=== PATIENT | male | born 1955 | race Caucasian/White ===

== ENCOUNTER 2016-05-22 14:08 | Day surgery (SDC) | payer OTHER ==
[2016-05-22] VITALS (8 sets, daily range): BP systolic 110–134; BP diastolic 60–81; PULSE 65–72; RESP 14–18; Ht 182.9 cm; Wt 146.6 kg
[~2016-05-22] VITALS: Ht 182.9 cm; Wt 146.6 kg
[~2016-05-22 14:08] MED LIST: PROPOFOL 200 MG INJ ONE
[2016-05-22] MEDS ORDERED: PROPOFOL 20 ML ONE (14:23)
[2016-05-22] MEDS ORDERED: MIDAZOLAM 1 MG/ML 2 ML INJ ONE ×2 (14:23→14:24)
--- NOTE | 2016-05-22 14:23 | HPN ---
Date/Time of Note Date/Time of Note DATE: 05/22/16 TIME: 14:19 Interval H&P Admission Note Pt. seen H&P reviewed: No system changes FLOR MANN May 22, 2016 14:23
[2016-05-22] MEDS ORDERED: ROPIVACAINE 0.5 % 30 ML VIAL ONE (14:26)
[2016-05-22] MEDS ORDERED: CEFAZOLIN 1 GM INJ ONE (14:26)
[2016-05-22 15:26] LABS: ADD SCAN DIFF NO
[2016-05-22] MEDS ORDERED: ASPI81TA3 PO (15:26)
[2016-05-22] MEDS ORDERED: ATOR40TA68 PO (15:26)
[2016-05-22] MEDS ORDERED: LISI10TA2 PO (15:26)
[2016-05-22] MEDS ORDERED: CLOP75TA28 PO (15:26)
[2016-05-22] MEDS ORDERED: ATEN50TA PO (15:26)
[2016-05-22 15:35] LABS: BASOPHILS % 0.5 % (0.0-2.0); EOSINOPHILS # 0.1 10^3/ul (0.0-0.5); HEMATOCRIT 43.3 % (42.0-52.0); HEMOGLOBIN 14.8 g/dl (14.0-18.0); LYMPHOCYTES # 2.2 10^3/ul (0.8-2.9); LYMPHOCYTES % 28.1 % (15.0-51.0); MEAN CORPUSCULAR HEMOGLOBIN 30.1 pg (29.0-33.0); MEAN CORPUSCULAR HGB CONC 34.2 g/dl (32.0-37.0); MEAN CORPUSCULAR VOLUME 88.2 fl (82.0-101.0); MONOCYTE # 0.6 10^3/ul (0.3-0.9); MONOCYTES % 8.1 % (0.0-11.0); NEUTROPHIL # 4.9 10^3/ul (1.6-7.5); NEUTROPHILS % 62.2 % (39.0-77.0); PLATELET COUNT 185 10^3/UL (140-415); RED BLOOD COUNT 4.91 10^6/ul (4.70-6.10); RED CELL DISTRIBUTION WIDTH 13.3 % (11.5-14.5); WHITE BLOOD COUNT 7.8 10^3/ul (4.8-10.8)
[2016-05-22 15:39] LABS: INR 0.91; PARTIAL THROMBOPLASTIN TIME 27.1 Sec (25.0-35.0); PROTIME 12.2 Sec (12.2-14.2)
[2016-05-22 15:46] LABS: CALCIUM 9.3 mg/dl (8.4-10.2); CREATININE 1.15 mg/dl (0.61-1.24)
--- NOTE | 2016-05-22 15:57 | RADRPT ---
PROCEDURE: CHEST 1VW CLINICAL INDICATION: Preoperative TECHNIQUE: Single frontal view of the chest was obtained COMPARISON: None. FINDINGS: The cardiac size is normal. Aortic vascular calcifications are demonstrated. There is no pulmonary vascular congestion. The lungs are clear. No consolidation, effusion, or pneumothorax. Mild degenerative changes of the visualized osseous structures are visualized. IMPRESSION: 1. No acute cardiopulmonary process. 2. Atherosclerosis. RPTAT:PP .Rhett Mayo MD, MD Date Time Electronically viewed and signed by .Rhett Mayo MD, MD on 05/22/2016 15:52 .V/
[2016-05-22] MEDS ORDERED: PHENYLephrine (100 MCG/ML) 5ML SYG ONE ×2 (15:59→16:05)
[2016-05-22] MEDS ORDERED: METOCLOPRAMIDE 10 MG INJ ONE (16:05)
[2016-05-22] MEDS ORDERED: ONDANSETRON 4 MG INJ ONE (16:05)
[2016-05-22] MEDS ORDERED: FAMOTIDINE 20 MG INJ ONE (16:05)
[2016-05-22] MEDS ORDERED: DEXAMETHASONE 4 MG/ML 1 ML INJ ONE (16:06)
[2016-05-22] MEDS ORDERED: METOPROLOL 5 MG INJ ONE (16:34)
[2016-05-22] MEDS ORDERED: MEPERIDINE 25 MG INJ IV PRN (17:00)
[2016-05-22] MEDS ORDERED: LABETALOL HCL 20MG INJ IV PRN (17:00)
[2016-05-22] MEDS ORDERED: ONDANSETRON 4 MG INJ IV PRN (17:00)
[2016-05-22] MEDS ORDERED: EPHEDrine SULFATE 50 MG/5 ML SYG IV PRN (17:00)
[2016-05-22] MEDS ORDERED: HYDROmorphONE (0.2 MG/ML) 10ML SYG IV PRN ×3 (17:00)
[2016-05-22] MEDS ORDERED: morphine (1 MG/ML) 10ML SYRINGE IV PRN ×3 (17:00)
[2016-05-22] MEDS ORDERED: METOCLOPRAMIDE 10 MG INJ IV PRN (17:00)
[2016-05-22] MEDS ORDERED: FENTAnyl 50 MCG/ML VIAL IV PRN ×3 (17:00)
[2016-05-22] MEDS ORDERED: DIPHENHYDRAMINE 50 MG INJ IV PRN (17:00)
--- NOTE | 2016-05-22 17:49 | RADRPT ---
PROCEDURE: Intraoperative imaging of the right elbow with fluoroscopy. CLINICAL INDICATION: Right elbow pain. Intraoperative. Hardware removal. TECHNIQUE: Two images of the right elbow were obtained in the operating room with an image intensi fier. No radiologist was in attendance. 32 seconds of fluoroscopy time was used. COMPARISON: No prior study is available for comparison. FINDINGS: Images demonstrate severe degenerative changes of the right elbow and extensive callus formation fro m prior fracture. There is no hardware present. IMPRESSION: 1. Intraoperative imaging of the right elbow. RPTAT: QQ .Vaibhav Aj MD, MD Date Time Electronically viewed and signed by .Vaibhav Aj MD, MD on 05/22/2016 17:48 .R/
[2016-05-22] MEDS ORDERED: OXYCODONE/ACETAMINOPHEN (5/325) TAB PO PRN (18:00)
--- NOTE | 2016-05-22 18:04 | OPR ---
DATE OF OPERATION: 05/22/2016 SURGEON: Dr. Denis Moreno. ANESTHESIA: General. PREOPERATIVE DIAGNOSIS: 1. Right elbow retained deep hardware. 2. Right elbow deep infection with osteomyelitis. POSTOPERATIVE DIAGNOSIS: 1. Right elbow retained deep hardware. 2. Right elbow deep infection with osteomyelitis. PROCEDURE: 1. Removal of deep hardware from right elbow. 2. Opening of bone cortex in the setting of osteomyelitis. 3. Bony infection drainage. 4. Deep excisional debridement and washout of bone infection, osteomyelitis right elbow. OPERATIVE FINDINGS: Retained hardware x2 with pustular exudate surrounding the more distal hardware . INDICATION FOR PROCEDURE: This is a 60-year-old male with longstanding right elbow pain after traum a. He was seen in clinic by me and found to have significant posttraumatic arthritis as well as ret ained hardware in his right elbow. MRI showed bony reaction within the proximal ulna, indicative of possible deep infection and osteomyelitis. Options were discussed and the patient elected to proce ed with surgical intervention, understanding the risks and benefits. DESCRIPTION OF PROCEDURE: The patient was seen in the preoperative area. All further questions wer e answered. Again, he gave informed consent understanding risks and benefits. He was taken to the operative suite and placed in supine position. He was placed under general anesthesia, and tourniqu et placed on the right upper extremity. Right upper extremity was prepped with ChloraPrep stick and draped in the usual sterile fashion. Esmarch bandage was used to exsanguinate the extremity and to urniquet inflated to 250 mmHg. The previous posterior elbow incision was utilized with sharp dissec tion carried down through skin and subcutaneous tissue. The skin flaps were elevated medially and l aterally, exposing the proximal ulna. There was a large bony osteophyte at the olecranon process wh ich was debrided and sent off for culture. Distally one of the pins was identified and a curet was used along with a drill to create a passage around the pin and the pin removed. The second pin was more buried and rongeur and drill were used to create a passage to access the pin. Once the pin was identified, it took very little effort to remove the pin and there was pus that came out of the bon e. This pustular exudate was cultured. A curet was placed into the intramedullary cortex and passe d approximately 3 cm anteriorly and 3 cm proximally. The area was copiously irrigated and devitali zed bone was excised and was sent along with the cultures. Attention was then turned to the more pr oximal aspect of the olecranon, and a drill was used to enter the intramedullary canal. A curet was driven distally down the intramedullary canal, and there was no evidence of infection in this area . A curet was used to probe around with any bone after the bony window was created and there were s ome small areas of devitalized bone which was excised. This was sent off for culture as well. Both wounds were copiously irrigated with a total of 3 liters of saline. The bone appeared clean after excisional debridement with a rongeur as well as axillary irrigation. The deep fascial layer was cl osed with 2-0 Monocryl and the skin was closed with 3-0 nylon. Final x-ray imaging confirmed remova l of all hardware and bony windows that were created for drainage of osteomyelitis. Xeroform was pl aced over the wounds followed by sterile gauze, ABD pads, Webril and a long arm splint. Tourniquet deflated after 57 minutes, and the patient was awakened from anesthesia. He was taken to the postop erative suite in stable condition and tolerated the procedure well without complication. SPECIMENS: 1. Superficial right elbow bony infection. 2. Right elbow deep bone infection. ESTIMATED BLOOD LOSS: 5 mL. COUNTS: Sponge, instrument and needle counts correct. TOURNIQUET TIME: 57 minutes. FLUOROSCOPIC IMAGES: 16 FLUOROSCOPIC TIME: Was 0.29 seconds. CONDITION ON DISCHARGE: Stable. Dictated By: DENIS SOLIS/ANAYELI Conf#: [id number] DID#: [id number]
--- NOTE | 2016-05-23 13:42 | RADRPT ---
Vent Rate: 66 bpm RR Interval: 0 msec FL Interval: 174 msec QRS Duration: 86 msec QT Interval: 400 msec QTC Interval: 419 msec P-R-T [place]: 50 - 59 - 57 degrees Normal sinus rhythm Normal ECG Electronically Signed By: Andre Rodríguez [id number]
== END 2016-05-22 18:20 | disposition home or self-care (01) ==
LOC: SDS 14:08
PROVIDERS: ATTEND Orthopaedic Surgery Hand Surgery
DX: Z45.89 Encounter for adjustment and management of other implanted devices (principal); M86.8X2 Other osteomyelitis, upper arm; I10 Essential (primary) hypertension; E11.9 Type 2 diabetes mellitus without complications
CPT/HCPCS: 20680; 71010; 73080; 80048; 85025; 85610; 85730; 87070; 87075; 87102; 87116; 88300; 93005; J0690; J1100; J2250; J2270; J2405; J2765; J3010; J2370; J2795